=== PATIENT | female | born 1995 | race Two or more races ===

== ENCOUNTER 2021-10-27 20:09 | Inpatient (IN) | payer OTHER ==
[~2021-10-27] VITALS: Ht 157.5 cm; Wt 62.6 kg
[2021-10-27] MEDS ORDERED: PRENATAL TABLE1 EAC1 PO (20:28)
== END 2021-10-29 13:21 | disposition home or self-care (01) | DRG 807 ==
LOC: OB/GYN 20:09 → LDR 20:09 → OB/GYN 10-28 01:09
PROVIDERS: ADMIT Obstetrics & Gynecology; ATTEND Obstetrics & Gynecology
PROC: 4A1HXCZ Monitoring of Products of Conception, Cardiac Rate, External Approach (ICD-10-PCS; 2021-10-27)
PROC: 10E0XZZ Delivery of Products of Conception, External Approach (ICD-10-PCS; principal; 2021-10-28)
DX: O80 Encounter for full-term uncomplicated delivery (principal); Z37.0 Single live birth; Z3A.40 40 weeks gestation of pregnancy; Z20.822 Contact with and (suspected) exposure to COVID-19

== ENCOUNTER 2023-01-31 13:00 | Inpatient (IN) | payer OTHER ==
[~2023-01-31] VITALS: Ht 157.5 cm; Wt 62.1 kg
[~2023-01-31 13:00] MED LIST: PRENATAL TABLE1 EAC1 PO
== END 2023-02-16 13:27 | disposition home or self-care (01) | DRG 798 ==
LOC: SURG 02-10 14:15 → LDR 02-14 06:19 → OB/GYN 02-14 06:19
PROVIDERS: ADMIT Specialist; ATTEND Specialist
PROC: 10E0XZZ Delivery of Products of Conception, External Approach (ICD-10-PCS; principal; 2023-02-14)
PROC: 4A1HXCZ Monitoring of Products of Conception, Cardiac Rate, External Approach (ICD-10-PCS; 2023-02-14)
PROC: 0UB70ZZ Excision of Bilateral Fallopian Tubes, Open Approach (ICD-10-PCS; 2023-02-15)
DX: O80 Encounter for full-term uncomplicated delivery (principal); Z37.0 Single live birth; Z3A.40 40 weeks gestation of pregnancy; Z30.2 Encounter for sterilization; Z20.822 Contact with and (suspected) exposure to COVID-19